=== PATIENT | female | born 1965 | race Caucasian/White ===

== ENCOUNTER → 2017-03-22 | Outpatient (CLI) | payer OTHER ==
--- NOTE | 2017-03-22 13:00 | RAD ---
Right axillary ultrasound, 03/22/2017: History: Lump with pain There is clinical concern was carefully scanned. There is an 8 mm smooth nodule in the right axilla demonstrating sonographic characteristics compatible with a benign lymph node. There is a larger 17 x 13 x 8 mm nodule which is predominantly hyperechoic with a thin hypoechoic rim. Some of its margins are smooth was are less clearly delineated. This most likely represents a fat replaced lymph node. No other sonographic abnormality was identified in the right axilla. IMPRESSION: Borderline enlarged right axillary lymph node which is probably fatty replaced as described above. Clinical and possibly sonographic surveillance is suggested to confirm stability.
== END | disposition home or self-care (01) ==
LOC: US 12:19
PROVIDERS: ATTEND Physician Assistant Medical
DX: M79.621 Pain in right upper arm (principal); R22.9 Localized swelling, mass and lump, unspecified; R22.31 Localized swelling, mass and lump, right upper limb
CPT/HCPCS: 76881

== ENCOUNTER → 2017-10-10 | Outpatient (CLI) | payer OTHER ==
--- NOTE | 2017-10-10 12:49 | RAD ---
DATE: 10/10/2017 EXAM: DIGITAL SCREEN BILAT W/CAD HISTORY: Routine screening COMPARISON: 10/08/2016 This study was interpreted with the benefit of Computerized Aided Detection (CAD). The breast parenchyma is heterogeneously dense, which could reduce sensitivity of mammography. Breast parenchyma level C. FINDINGS: No new or enlarging breast densities are seen. Several benign type calcifications are noted. No suspicious microcalcifications have developed. IMPRESSION: Stable mammograms without evidence of malignancy. BI-RADS CATEGORY: 2 BENIGN FINDING(S) RECOMMENDED FOLLOW-UP: 12M 12 MONTH FOLLOW-UP PQRS compliance statement: Patient information was entered into a reminder system with a target due date for the next mammogram. Mammography is a sensitive method for finding small breast cancers, but it does not detect them all and is not a substitute for careful clinical examination. A negative mammogram does not negate a clinically suspicious finding and should not result in delay in biopsying a clinically suspicious abnormality. "Our facility is accredited by the [employer] Mammography [employer]."
== END | disposition home or self-care (01) ==
LOC: MAMMO 12:05
PROVIDERS: ATTEND Physician Assistant Medical
DX: Z12.31 Encounter for screening mammogram for malignant neoplasm of breast (principal)
CPT/HCPCS: G0202; 77067

== ENCOUNTER → 2017-12-20 | Outpatient (CLI) | payer OTHER ==
--- NOTE | 2017-12-20 08:48 | RAD ---
Cervical spine, 5 views, 12/20/2017: History: Pain There is mild disc space narrowing and marginal spurring at C5-6. The other intervertebral disc spaces are well preserved. No fracture or dislocation is identified. The right neural foramina are patent. The left neural foramina are poorly demonstrated due to suboptimal positioning. No prevertebral soft tissue swelling is seen. IMPRESSION: 1. Mild degenerative disc disease at C5-6. 2. No acute abnormality is detected.
== END | disposition home or self-care (01) ==
LOC: PMG 08:16
PROVIDERS: ATTEND Physician Assistant Medical
DX: M50.322 Other cervical disc degeneration at C5-C6 level (principal)
CPT/HCPCS: 72050

== ENCOUNTER → 2018-09-13 | Outpatient (CLI) | payer OTHER ==
--- NOTE | 2018-09-13 10:05 | RAD ---
LUMBAR SPINE 2-3V (AP, bilateral oblique, lateral, coned down spot) INDICATION: lower back pain, hx of back pain COMPARISON: None. FINDINGS: There are 5 nonrib-bearing lumbar-type vertebral bodies. The normal lumbar lordosis is maintained. No listhesis. Disc spaces are maintained. No high-grade neural foraminal narrowing. Cholecystectomy clips. Right hemiabdomen surgical staple line. Mild colonic stool. IMPRESSION: No acute lumbar fracture or malalignment. Electronically signed by: Mario Adler MD (09/13/2018 10:01 AM) [facility]
--- NOTE | 2018-10-30 13:36 | RAD ---
LUMBAR SPINE 2-3V (AP, bilateral oblique, lateral, coned down spot) INDICATION: lower back pain, hx of back pain COMPARISON: None. FINDINGS: There are 5 nonrib-bearing lumbar-type vertebral bodies. The normal lumbar lordosis is maintained. No listhesis. Disc spaces are maintained. No high-grade neural foraminal narrowing. Cholecystectomy clips. Right hemiabdomen surgical staple line. Mild colonic stool. IMPRESSION: No acute lumbar fracture or malalignment. Electronically signed by: Mario Choi MD (09/13/2018 10:01 AM) [facility] DICTATED AND SIGNED BY: MARIO CHOI MD DATE: 09/13/18 [id number] CC: ERIBERTO SLAUGHTER ~ MTDD
== END | disposition home or self-care (01) ==
LOC: RAD 09:14
PROVIDERS: ATTEND Physician Assistant Medical
DX: M54.5 Low back pain (principal)
CPT/HCPCS: 72100; 72110

== ENCOUNTER → 2018-10-13 | Outpatient (CLI) | payer OTHER ==
--- NOTE | 2018-10-14 16:57 | RAD ---
DATE: 10/13/2018 EXAM: DIGITAL SCREEN BILAT W/CAD HISTORY: Routine screening COMPARISON: 10/05/2015, 10/08/2016, and 10/10/2017 mammographic exams This study was interpreted with the benefit of Computerized Aided Detection (CAD). Breast Density: SCATTERED The breast parenchyma shows scattered fibroglandular densities. Breast parenchyma level B. FINDINGS: Benign bilateral axillary lymph nodes are present. No suspicious calcification cluster, mass, or distortion. IMPRESSION: Benign BI-RADS CATEGORY: 2 BENIGN FINDING(S) RECOMMENDED FOLLOW-UP: 12M 12 MONTH FOLLOW-UP PQRS compliance statement: Patient information was entered into a reminder system with a target due date in one year for the next mammogram. Mammography is a sensitive method for finding small breast cancers, but it does not detect them all and is not a substitute for careful clinical examination. A negative mammogram does not negate a clinically suspicious finding and should not result in delay in biopsying a clinically suspicious abnormality. "Our facility is accredited by the [employer] Mammography [employer]."
== END | disposition home or self-care (01) ==
LOC: MAMMO 11:01
PROVIDERS: ATTEND Obstetrics & Gynecology
DX: Z12.31 Encounter for screening mammogram for malignant neoplasm of breast (principal)
CPT/HCPCS: 77067

== ENCOUNTER → 2019-10-16 | Outpatient (CLI) | payer OTHER ==
--- NOTE | 2019-10-20 19:55 | RAD ---
History: Routine screening. Technique: Bilateral digital mammographic routine views were obtained with CAD - computer aided detection. Comparison: Most recently on 10/13/2018. Findings: Breast Tissue Density B :The breast tissue is composed of mixed fatty and fibroglandular tissue. There are no suspicious masses, microcalcifications or areas of architectural distortion. Impression: No newly seen mass, suspicious microcalcifications or area of architectural distortion throughout either breast. BI-RADS Category 2: Benign. Recommendation: Routine annual screening mammogram. A mammogram does not have 100% sensitivity and therefore a negative imaging study should not delay further work up of a suspicious abnormality. The patient will receive a letter with the results in the mail. Patient information is entered into the reminder system with a target due date for the next screening mammogram. The patient will receive a reminder. "Our facility is accredited by the [employer] Mammography Program."
== END | disposition home or self-care (01) ==
LOC: MAMMO 09:51
PROVIDERS: ATTEND Physician Assistant Medical
DX: Z12.31 Encounter for screening mammogram for malignant neoplasm of breast (principal)
CPT/HCPCS: 77067

== ENCOUNTER → 2020-07-26 | Outpatient (CLI) | payer OTHER ==
--- NOTE | 2020-07-26 17:11 | RAD ---
PROCEDURE: ELBOW BILAT 3V, HAND BILAT 3V CLINICAL INDICATION / HISTORY: Reason: RHEUMATOID ARTHRITIS / Spl. Instructions: / History: . TECHNIQUE: Bilateral Elbows 2 views COMPARISON: None FINDINGS: Two views of the right and left elbow age demonstrate no evidence of fracture, subluxation, or dislocation. Soft tissues unremarkable. IMPRESSION: Normal bilateral elbow x-rays. PROCEDURE: ELBOW BILAT 3V, HAND BILAT 3V CLINICAL INDICATION / HISTORY: Reason: RHEUMATOID ARTHRITIS / Spl. Instructions: / History: . TECHNIQUE: PA, lateral and oblique views of the right and left hands. COMPARISON: None FINDINGS: No fracture or dislocation is identified. The bone density is normal. The joint spaces are maintained, and there are no erosions to suggest an inflammatory arthropathy. The soft tissues are unremarkable. IMPRESSION: Normal bilateral hand x-rays. Electronically signed by: Dionte Petit MD (07/26/2020 5:08 PM) [id number]
== END | disposition home or self-care (01) ==
LOC: DXRAD 14:00
PROVIDERS: ATTEND Internal Medicine Rheumatology
DX: M05.9 Rheumatoid arthritis with rheumatoid factor, unspecified (principal)
CPT/HCPCS: 73080; 73130

== ENCOUNTER → 2020-10-19 | Outpatient (CLI) | payer OTHER ==
--- NOTE | 2020-10-19 15:14 | RAD ---
DATE: 10/19/2020 8:23 AM EXAM: MAMMO HEATHER SCREENING BILATERAL HISTORY: Screening COMPARISON: 10/16/2019 Bilateral full field craniocaudal and mediolateral oblique images were obtained using digital technique. This study was interpreted with the benefit of Computerized Aided Detection (CAD). FINDINGS: Breast Density: SCATTERED The breast parenchyma shows scattered fibroglandular densities. Breast parenchyma level B No suspicious masses, microcalcifications or architectural distortion is present to suggest malignancy in either breast. The visualized axillae are unremarkable. IMPRESSION: No mammographic evidence of malignancy. BI-RADS CATEGORY: 1 NEGATIVE RECOMMENDED FOLLOW-UP: 12M 12 MONTH FOLLOW-UP Annual screening mammography is recommended, unless clinically indicated sooner based on symptoms or change in physical exam. PQRS compliance statement: Patient information was entered into a reminder system with a target due date for the next mammogram. Mammography is a sensitive method for finding small breast cancers, but it does not detect them all and is not a substitute for careful clinical examination. A negative mammogram does not negate a clinically suspicious finding and should not result in delay in biopsying a clinically suspicious abnormality. "Our facility is accredited by the [employer] Mammography [employer]."
== END ==
LOC: MAMMO 08:12
PROVIDERS: ATTEND Physician Assistant Medical
DX: Z12.31 Encounter for screening mammogram for malignant neoplasm of breast (principal)
CPT/HCPCS: 77063; 77067

== ENCOUNTER → 2021-08-29 | Outpatient (CLI) | payer OTHER ==
--- NOTE | 2021-08-29 16:33 | RAD ---
EXAM: Renal sonogram. HISTORY: Urinary frequency. TECHNIQUE: Sonographic imaging of the kidneys and bladder was performed. COMPARISON: None. FINDINGS: The kidneys are normal in size. No solid or cystic renal lesion is seen. There is superior right renal cortical thinning. The prevoid bladder volume is 24 cc. The ureteral jets are both seen. IMPRESSION: 1. Superior right renal cortical thinning due to atrophy or scarring. 2. No acute sonographic finding.
== END ==
LOC: US 15:21
PROVIDERS: ATTEND Physician Assistant Medical
DX: R35.0 Frequency of micturition (principal)
CPT/HCPCS: 76770

== ENCOUNTER → 2021-10-30 | Outpatient (CLI) | payer OTHER ==
--- NOTE | 2021-10-30 11:58 | RAD ---
BILATERAL DIGITAL SCREENING 2-D MAMMOGRAM INDICATION: Routine screening. COMPARISON: October 13, 2018, October 10, 2017, October 19, 2020 and October 16, 2019. Interpretation was made using CAD. FINDINGS: Breast Density: There are scattered areas of fibroglandular density. RIGHT BREAST: No suspicious masses, calcifications or areas of architectural distortion are seen. LEFT BREAST: There is a stable oval mass in the lower outer left subareolar region that is benign in appearance. No suspicious masses, calcifications or areas of architectural distortion are seen. IMPRESSION: 1. No imaging evidence of malignancy. ASSESSMENT: BI-RADS 2. Benign findings RECOMMENDATION: Routine annual screening mammogram. The facility will notify the patient of the results via mail. Patient information will be entered int o the mammography reminder system with a target recall date for the next mammogram. A reminder letter will be generated by the facility. Electronically signed by: Carmen Knott MD (10/30/2021 11:56 AM) [id number]
== END ==
LOC: MAMMO 11:13
PROVIDERS: ATTEND Physician Assistant Medical
DX: Z12.31 Encounter for screening mammogram for malignant neoplasm of breast (principal)
CPT/HCPCS: 77067